=== PATIENT | female | born 1970 | race Caucasian/White ===

== ENCOUNTER 2017-01-10 00:25 | Inpatient (IN) | payer OTHER ==
[2017-01-10] MEDS ORDERED: ONDANSETRON 4 MG/2 ML VIAL IVP STA (00:35)
[2017-01-10] MEDS ORDERED: MORPHINE SULFATE 4 MG/ML SYRINGE IV STA (00:39)
[2017-01-10] MEDS ORDERED: SODIUM CHLORIDE 0.9% 1,000 ML IV STA ×3 (00:39→02:30)
[2017-01-10] MEDS ORDERED: IPRATROPIUM-ALBUTEROL 3 ML NEB INHALATION STA (00:44)
--- NOTE | 2017-01-10 00:44 | ED ---
General Adult HPI - General Chief complaint: Chest Pain Stated complaint: chest pain Time Seen by Provider: 01/10/17 00:26 Source: patient, EMS, RN notes reviewed, old records reviewed Mode of arrival: EMS Limitations: no limitations - History of Present Illness Initial comments: This is a 46-year-old female here for evaluation of chest pain. Left-sided chest pain shortness of breath. Patient suffers from COPD high blood pressure. Patient states she hasn't been feeling well, having increased weight loss, having belly pain secondary to hiatal hernia and decreased appetite. Patient does take pain medications at home she settles are not working at this time. Patient does admit to nausea vomiting.No fever no travel history no cough or congestion. - Related Data Home Medications Medication Instructions Recorded Confirmed Ibuprofen [Motrin] 800 mg PO TID 06/08/15 11/17/16 Loratadine [Claritin] 10 mg PO DAILY 06/08/15 11/17/16 Ranitidine HCl 150 mg PO BID 06/08/15 11/17/16 ALPRAZolam 1 mg PO BID 12/18/15 12/18/15 Albuterol Inhaler [Ventolin Hfa 2 puff INHALATION RT-TID PRN 12/18/15 11/17/16 Inhaler] Tiotropium 18 Mcg/Puff [Spiriva] 1 puff INHALATION RT-DAILY 12/18/15 11/17/16 carBAMazepine [TEGretol XR] 100 mg PO DAILY 12/18/15 11/17/16 HYDROcodone/APAP 5-325MG [[place] 2 tab PO Q6HR PRN 11/17/16 11/17/16 5-325] Previous Rx's Medication Instructions Recorded ALPRAZolam [Xanax] 0.5 mg PO BID #20 tab 01/03/16 Allergies Allergy/AdvReac Type Severity Reaction Status Date / Time codeine Allergy Unknown Verified 12/18/15 19:45 Review of Systems ROS Statement: Those systems with pertinent positive or pertinent negative responses have been documented in the HPI. ROS Other: All systems not noted in ROS Statement are negative. Past Medical History Past Medical History: Asthma, COPD, Hypertension, Osteoarthritis (OA), Seizure Disorder Additional Past Medical History / Comment(s): back pain History of Any Multi-Drug Resistant Organisms: None Reported Past Surgical History: Section, Cholecystectomy Past Psychological History: No Psychological Hx Reported Smoking Status: Current every day smoker Past Alcohol Use History: Heavy Past Drug Use History: Marijuana - Past Family History Mother Family Medical History: Cancer Father Family Medical History: Cancer General Exam Limitations: no limitations General appearance: alert, anxious, in distress, cachectic Head exam: Present: atraumatic, normocephalic, normal inspection Eye exam: Present: normal appearance, PERRL, EOMI. Absent: scleral icterus, conjunctival injection, periorbital swelling ENT exam: Present: normal exam, mucous membranes moist Neck exam: Present: normal inspection. Absent: tenderness, meningismus, lymphadenopathy Respiratory exam: Present: wheezes, chest wall tenderness, accessory muscle use , decreased breath sounds, prolonged expiratory. Absent: respiratory distress, rales, rhonchi, stridor Cardiovascular Exam: Present: normal rhythm, tachycardia, normal heart sounds. Absent: systolic murmur, diastolic murmur, rubs, gallop, clicks GI/Abdominal exam: Present: soft, tenderness, guarding, normal bowel sounds. Absent: distended, rebound, rigid Extremities exam: Present: normal inspection, full ROM, normal capillary refill. Absent: tenderness, pedal edema, joint swelling, calf tenderness Back exam: Present: normal inspection Neurological exam: Present: alert, oriented X3, CN II-XII intact Psychiatric exam: Present: normal affect, normal mood Skin exam: Present: warm, dry, intact, normal color. Absent: rash Course Vital Signs 01/10/17 01/10/17 01/10/17 00:27 00:45 00:50 Temperature 97.2 F L Pulse Rate 101 H 86 80 Respiratory 22 20 Rate Blood Pressure 108/82 120/67 O2 Sat by Pulse 89 L Oximetry 01/10/17 01/10/17 01/10/17 01:10 01:49 02:53 Temperature Pulse Rate 88 98 115 H Respiratory 18 20 Rate Blood Pressure 119/80 114/77 O2 Sat by Pulse 92 L 94 L Oximetry - Reevaluation(s) Reevaluation #1: 01/10/17 03:46 Patient remaining hemodynamically stable, pain is difficult to control with at this time is control Reevaluation #2: 01/10/17 03:47 Speaking with surgery regarding patient's gastric perforation, will evaluate EKG Findings - EKG Comments: EKG Findings:: EKG shows normal sinus rhythm rate of 93, [place] 134, QRS 72, QTC 482 Medical Decision Making - Medical Decision Making 46 female ER for reevaluation. Regarding abdominal pain.. Patient has a dull pain and epigastric abdominal pain, CT positive for gastric perforation, patient will be admitted for IV antibiotics and surgical evaluation and treatment, nothing by mouth pain control and nausea control - Lab Data Result diagrams: 01/10/17 00:40 01/10/17 00:40 Lab Results 01/10/17 01/10/17 01/10/17 Range/Units 00:40 00:40 00:40 WBC 13.5 H (3.8-10.6) k/uL RBC 3.89 (3.80-5.40) m/uL Hgb 12.9 (11.4-16.0) gm/dL Hct 41.1 (34.0-46.0) % MCV 105.8 H (80.0-100.0) fL MCH 33.2 (25.0-35.0) pg MCHC 31.4 (31.0-37.0) g/dL RDW 17.9 H (11.5-15.5) % Plt Count 196 (150-450) k/uL Neutrophils % 67 % Lymphocytes % 25 % Monocytes % 4 % Eosinophils % 1 % Basophils % 0 % Neutrophils # 9.1 H (1.3-7.7) k/uL Lymphocytes # 3.4 (1.0-4.8) k/uL Monocytes # 0.5 (0-1.0) k/uL Eosinophils # 0.2 (0-0.7) k/uL Basophils # 0.1 (0-0.2) k/uL Hypochromasia Moderate Anisocytosis Slight Macrocytosis Marked PT (9.0-12.0) sec INR (<1.1) APTT (22.0-30.0) sec D-Dimer (<0.60) mg/L FEU Sodium 141 (137-145) mmol/L Potassium 3.4 L (3.5-5.1) mmol/L Chloride 103 (98-107) mmol/L Carbon Dioxide 23 (22-30) mmol/L Anion Gap 15 mmol/L BUN 3 L (7-17) mg/dL Creatinine 0.40 L (0.52-1.04) mg/dL Est GFR (MDRD) Af Amer >60 (>60 ml/min/1.73 sqM) Est GFR (MDRD) Non-Af >60 (>60 ml/min/1.73 sqM) Glucose 111 H (74-99) mg/dL Calcium 8.7 (8.4-10.2) mg/dL Magnesium 1.9 (1.6-2.3) mg/dL Total Bilirubin 1.3 (0.2-1.3) mg/dL AST 159 H (14-36) U/L ALT 40 (9-52) U/L Alkaline Phosphatase 312 H (38-126) U/L Total Creatine Kinase 34 (30-135) U/L CK-MB (CK-2) 0.6 (0.0-2.4) ng/mL CK-MB (CK-2) Rel Index 1.8 Troponin I <0.012 (0.000-0.034) ng/mL NT-Pro-B Natriuret Pep pg/mL Total Protein 7.7 (6.3-8.2) g/dL Albumin 3.9 (3.5-5.0) g/dL Lipase 51 (23-300) U/L 01/10/17 01/10/17 Range/Units 00:40 00:40 WBC (3.8-10.6) k/uL RBC (3.80-5.40) m/uL Hgb (11.4-16.0) gm/dL Hct (34.0-46.0) % MCV (80.0-100.0) fL MCH (25.0-35.0) pg MCHC (31.0-37.0) g/dL RDW (11.5-15.5) % Plt Count (150-450) k/uL Neutrophils % % Lymphocytes % % Monocytes % % Eosinophils % % Basophils % % Neutrophils # (1.3-7.7) k/uL Lymphocytes # (1.0-4.8) k/uL Monocytes # (0-1.0) k/uL Eosinophils # (0-0.7) k/uL Basophils # (0-0.2) k/uL Hypochromasia Anisocytosis Macrocytosis PT 10.8 (9.0-12.0) sec INR 1.1 (<1.1) APTT 25.2 (22.0-30.0) sec D-Dimer 1.26 H (<0.60) mg/L FEU Sodium (137-145) mmol/L Potassium (3.5-5.1) mmol/L Chloride (98-107) mmol/L Carbon Dioxide (22-30) mmol/L Anion Gap mmol/L BUN (7-17) mg/dL Creatinine (0.52-1.04) mg/dL Est GFR (MDRD) Af Amer (>60 ml/min/1.73 sqM) Est GFR (MDRD) Non-Af (>60 ml/min/1.73 sqM) Glucose (74-99) mg/dL Calcium (8.4-10.2) mg/dL Magnesium (1.6-2.3) mg/dL Total Bilirubin (0.2-1.3) mg/dL AST (14-36) U/L ALT (9-52) U/L Alkaline Phosphatase (38-126) U/L Total Creatine Kinase (30-135) U/L CK-MB (CK-2) (0.0-2.4) ng/mL CK-MB (CK-2) Rel Index Troponin I (0.000-0.034) ng/mL NT-Pro-B Natriuret Pep 53 pg/mL Total Protein (6.3-8.2) g/dL Albumin (3.5-5.0) g/dL Lipase (23-300) U/L - Radiology Data Radiology results: report reviewed (CT chest abdomen pelvis shows gastric pull perforation, no PE, chest x-ray negative for acute disease), image reviewed Critical Care Time Critical Care Time: Yes Total Critical Care Time: 31 Disposition Clinical Impression: Chronic back pain, Peritonitis, Gastric ulcer with perforation Disposition: ADMITTED IP TO THIS [facility] Condition: Serious Referrals: None,Stated [Primary Care Provider] - 1-2 days
[2017-01-10 00:54] LABS: Anisocytosis Slight; Basophils # (A) 0.1 k/uL (0-0.2); Basophils % (A) 0 %; CH 31.9; CHCM 30.3; Eosinophils # (A) 0.2 k/uL (0-0.7); Eosinophils % (A) 1 %; HCT 41.1 % (34.0-46.0); HDW 2.44; HGB 12.9 gm/dL (11.4-16.0); Hypochromasia Moderate; Luc # (Auto) 0.29; Luc % (Auto) 2; Lymphocytes # (A) 3.4 k/uL (1.0-4.8); Lymphocytes % (A) 25 %; MCH 33.2 pg (25.0-35.0); MCHC 31.4 g/dL (31.0-37.0); MCV 105.8 fL (80.0-100.0); Macrocytosis Marked; Mean Platelet Volume 7.9; Monocytes # (A) 0.5 k/uL (0-1.0); Monocytes % (A) 4 %; Neutrophils # (A) 9.1 k/uL (1.3-7.7); Neutrophils % (A) 67 %; RBC 3.89 m/uL (3.80-5.40); RDW 17.9 % (11.5-15.5); WBC 13.5 k/uL (3.8-10.6); WBC (Perox) 13.42
[2017-01-10 01:14] LABS: ALT 40 U/L (9-52); AST 159 U/L (14-36); Alkaline Phosphatase 312 U/L (38-126); Anion Gap 15 mmol/L; Blood Urea Nitrogen 3 mg/dL (7-17); Calcium 8.7 mg/dL (8.4-10.2); Carbon Dioxide 23 mmol/L (22-30); Chloride 103 mmol/L (98-107); Glucose 111 mg/dL (74-99); Magnesium 1.9 mg/dL (1.6-2.3); Non-African American GFR(MDRD) >60 (>60 ml/min/1.73 sqM); Potassium 3.4 mmol/L (3.5-5.1); Sodium 141 mmol/L (137-145); Total Bilirubin 1.3 mg/dL (0.2-1.3); Total Protein 7.7 g/dL (6.3-8.2)
[2017-01-10 01:18] LABS: INR 1.1 (<1.1); Partial Thromboplastin Time 25.2 sec (22.0-30.0); Prothrombin Time 10.8 sec (9.0-12.0)
[2017-01-10 01:27] LABS: Creatine Kinase 34 U/L (30-135)
[2017-01-10] MEDS ORDERED: RX INFO: IV CONTRAST WAS GIVEN 1 EACH MISC MISCELLANE PRN ×2 (01:33→02:30)
--- NOTE | 2017-01-10 01:34 | XR ---
EXAM: XR Chest, 2 Views. CLINICAL HISTORY: Reason: Chest Pain TECHNIQUE: Frontal and lateral views of the chest. COMPARISON: 01/03/16 radiographs. FINDINGS: Lungs: The lungs are now clear, and the pulmonary vascular markings are normal in appearance. Pleural space: The pleural spaces are now clear. No pneumothorax. Heart: Unremarkable. No cardiomegaly. Mediastinum: Unremarkable. Bones/joints: Bones stable including thoracolumbar dextroscoliosis and accentuated kyphosis, with multilevel thoracic and upper lumbar compression deformities that are unchanged as is degenerative change in both shoulders accompanied by smooth contour deformity of the distal right clavicle. Tubes, lines and devices: Interval removal of previous left sided central venous catheter. IMPRESSION: No acute process seen within the chest.
[2017-01-10 01:40] LABS: Creatine Kinase MB 0.6 ng/mL (0.0-2.4); Troponin I <0.012 ng/mL (0.000-0.034)
[2017-01-10] MEDS ORDERED: MORPHINE SULFATE 4 MG/ML SYRINGE IVP STA (02:10)
[2017-01-10] MEDS ORDERED: SODIUM CHLORIDE 0.9% 500 ML IV STA (02:30)
[2017-01-10] MEDS ORDERED: AMPICILLIN-SULBACTAM 3 GM in SODIUM CHLORIDE 0.9% 100 ML IVPB STA (02:30)
--- NOTE | 2017-01-10 02:33 | CT ---
EXAM: CT Angiography Chest With Intravenous Contrast. CLINICAL HISTORY: Reason: Pain TECHNIQUE: Axial computed tomographic angiography images of the chest with intravenous contrast using pulmonary embolism protocol. CTDI is 45.49 mGy and DLP is 392 mGy-cm This CT exam was performed using one or more of the following dose reduction techniques: automated exposure control, adjustment of the mA and/or kV according to patient size, and/or use of iterative reconstruction technique. MIP reconstructed images were created and reviewed. COMPARISON: Current chest radiograph. FINDINGS: Artifacts: Mild motion related artifact. Pulmonary arteries: Unremarkable. No pulmonary embolism. Aorta: No acute findings. No thoracic aortic aneurysm. Lungs: There is right middle lobe volume loss with bronchiectasis, containing small amount of endobronchial material within. Mild left lower lobe bronchiectasis also contains some endobronchial density within. Additional bronchiectasis with linear atelectasis or scarring anteriorly in the right upper lobe were there are few small nodules measuring up to 4-5 mm on image 40. Elsewhere, there is a thin-walled cyst or bulla in the lingula, and minimal atelectasis in the left lower lobe posterior to the heart. Pleural space: Unremarkable. No significant effusion. No pneumothorax. Heart: Unremarkable. No cardiomegaly. No significant pericardial effusion. No evidence of RV dysfunction. Bones/joints: Accentuated thoracolumbar kyphosis with moderate to severe chronic appearing T11 compression deformity centered to the left of midline, accompanied by slight left lateral translation of T10 on T11. Additional chronic mild to moderate L1 and mild T4 and T5 compression deformities. Lymph nodes: Unremarkable. No enlarged lymph nodes. Upper abdomen: Small amount of perihepatic and perhaps perisplenic ascites. Scattered foci of free air present. There may be a small hiatal hernia with adjacent gastric wall thickening, partially included. IMPRESSION: 1. No evidence of pulmonary embolism. 2. Multifocal bronchiectasis, most notably within the right middle lobe where there is volume loss and left lower lobe, and containing small amounts of endobronchial density/debris within perhaps on the basis of mucous plugging or aspiration. Additional right upper lobe bronchiectasis and scarring with small nodules measuring up to 5 mm, and which are indeterminate. In low-risk patients (minimal or absent history of smoking or other known risk factors), recommend CT at 12 months. If stable, no further follow-up. For high-risk patients (history of smoking or other known risk factors), recommend initial CT at 6-12 months. If stable, repeat CT at 18-24 months. 3. Free air present in the upper abdomen, concerning for hollow viscus perforation assuming no recent abdominal surgery, which can be further assessed by CT of the abdomen and pelvis. This was called to the covering ER clinician Dr. Marx at time of dictation 0230 hrs. Eastern standard time. 4. Additional findings as above. [employer] 01/10/17 02:29 Call Doctor Regarding Bowel Perforation with Free Air, called DR MARX @ [phone] 01/10/17 02:51 Call From [facility]
--- NOTE | 2017-01-10 03:35 | CT ---
EXAM: CT Abdomen and Pelvis Without Intravenous Contrast. CLINICAL HISTORY: Reason: Pain TECHNIQUE: Axial computed tomography images of the abdomen and pelvis without intravenous contrast. CTDI is 6.20 MGy and DLP is 276.00 mGy-cm This CT exam was performed using one or more of the following dose reduction techniques: automated exposure control, adjustment of the mA and/or kV according to patient size, and/or use of iterative reconstruction technique. COMPARISON: Earlier CTA of the same morning. FINDINGS: Lower thorax: Lung bases are unchanged from earlier is chest CTA. ABDOMEN: Liver: Hepatomegaly with diffuse hepatic steatosis. Gallbladder and bile ducts: Prior cholecystectomy with mild dilatation of the common duct measuring 10 mm. Pancreas: Unremarkable. No ductal dilation. Spleen: Unremarkable. No splenomegaly. Adrenals: Unremarkable. No mass. Kidneys and ureters: Retained contrast within the kidneys and ureters without evidence of hydronephrosis. There is a partially exophytic 2.0 cm probable cyst along the lateral interpolar left kidney, and there may be a second smaller subcentimeter cyst along the medial right upper pole. Stomach and bowel: There is again free air present within the upper abdomen including underlying the left diaphragm and immediately anterior to the proximal stomach. The stomach itself is incompletely distended, allowing for which there appears to be wall thickening. Distal colonic diverticulosis within the pelvis without evidence of diverticulitis, nor intestinal obstruction. Appendix: No findings to suggest acute appendicitis. PELVIS: Bladder: Retained radiodense contrast within the urinary bladder, limiting its assessment. Reproductive: Uterus and adnexa are grossly normal. ABDOMEN and PELVIS: Intraperitoneal space: There are small amounts of free fluid within the abdomen and pelvis, and there is generalized peritoneal fat stranding most notably in the upper abdomen although also present in the paracolic gutters. No loculated drainable collection is seen. Bones/joints: Bones are stable including chronic appearing compression deformities at T11 greater than L1, associated left lateral translation of T10 on T11 and accentuated thoracolumbar kyphosis. Vasculature: No abdominal aortic aneurysm. Lymph nodes: No bulky adenopathy. IMPRESSION: 1. Free intraperitoneal air consistent with hollow viscus perforation. This is centered in the upper abdomen including immediately anterior to the stomach, which is the most likely source, perhaps on the basis of perforated gastric ulcer. 2. Small amounts of free fluid and diffuse peritoneal inflammatory changes within the abdomen and pelvis. No loculated drainable abscess. 3. Additional findings as above including hepatomegaly and hepatic steatosis, and mild prominence of the common duct status post cholecystectomy. [employer] 01/10/17 03:41 Call Doctor Regarding Bowel Perforation with Free Air, called Dr. Marx on 01/10 03:41 (-04:00)
[2017-01-10] MEDS ORDERED: PANTOPRAZOLE 40 MG/10 ML VIAL IVP STA (03:41)
[2017-01-10] MEDS ORDERED: MORPHINE SULFATE 4 MG/ML SYRINGE IV PRN (03:42)
[2017-01-10] MEDS ORDERED: NALOXONE 0.4 MG/ML 1 ML VIAL IV PRN (03:42)
--- NOTE | 2017-01-10 04:40 | P.GSHP ---
History of Present Illness H&P Date: 01/10/17 Chief Complaint: Abdominal and chest pain The patient presented with a several-day history of abdominal and chest pain. Her workup today is consistent with a perforated ulcer. The patient is been on steroids recently for an exacerbation of MS. I have done and EGD on her in the past. - Constitutional Comment: Chronically ill-appearing Constitutional: Reports as per HPI Past Medical History Past Medical History: Asthma, COPD, Hypertension, Osteoarthritis (OA), Seizure Disorder Additional Past Medical History / Comment(s): back pain History of Any Multi-Drug Resistant Organisms: None Reported Past Surgical History: Section, Cholecystectomy Additional Past Surgical History / Comment(s): Excision of infected cyst from the right breast Past Psychological History: No Psychological Hx Reported Smoking Status: Current every day smoker Past Alcohol Use History: Heavy Past Drug Use History: Marijuana - Past Family History Mother Family Medical History: Cancer Father Family Medical History: Cancer Medications and Allergies Home Medications and Allergies Comment(s): Reports recent steroid use Home Medications Medication Instructions Recorded Confirmed Type Ibuprofen [Motrin] 800 mg PO TID 06/08/15 11/17/16 History Loratadine [Claritin] 10 mg PO DAILY 06/08/15 11/17/16 History Ranitidine HCl 150 mg PO BID 06/08/15 11/17/16 History ALPRAZolam 1 mg PO BID 12/18/15 12/18/15 History Albuterol Inhaler [Ventolin Hfa 2 puff INHALATION RT-TID PRN 12/18/15 11/17/16 History Inhaler] Tiotropium 18 Mcg/Puff [Spiriva] 1 puff INHALATION RT-DAILY 12/18/15 11/17/16 History carBAMazepine [TEGretol XR] 100 mg PO DAILY 12/18/15 11/17/16 History HYDROcodone/APAP 5-325MG [[place] 2 tab PO Q6HR PRN 11/17/16 11/17/16 History 5-325] Allergies Allergy/AdvReac Type Severity Reaction Status Date / Time codeine Allergy Unknown Verified 12/18/15 19:45 Surgical - Exam Osteopathic Statement: *. No significant issues noted on an osteopathic structural exam other than those noted in the History and Physical/Consult. Vital Signs Temp Pulse Resp BP Pulse Ox 97.2 F L 101 H 22 108/82 89 L 01/10/17 00:27 01/10/17 00:27 01/10/17 00:27 01/10/17 00:27 01/10/17 00:27 - General moderate distress - Eyes normal ocular movement - ENT no hearing loss - Neck trachea midline - Respiratory Mildly decreased breath sounds bilaterally bilateral: wheezing - Cardiovascular Rhythm: regular - Abdomen Abdomen: tender, bowel sounds (Decreased) Results - Labs 01/10/17 00:40 01/10/17 00:40 - Imaging CT scan - abdomen: report reviewed Assessment and Plan (1) Perforated viscus Status: Acute (2) COPD (chronic obstructive pulmonary disease) Status: Acute (3) Nicotine dependence Status: Acute Plan: I discussed the findings with Keiko and her significant other. She needs a laparotomy with probable oversew of perforated ulcer. Washout the peritoneal contamination. There is less likely another source of perforation, however that will be repaired if found. Procedure, risks and complications were discussed. Explained she is at higher risk due to her COPD the developing pulmonary complications. DVT and ulcer prophylaxis. She'll need to be and antibiotics. Condition is guarded
[2017-01-10] MEDS ORDERED: LIDOCAINE 1% INJ 10MG/ML (20 ML MDV) ONE (05:18)
[2017-01-10] MEDS ORDERED: VECURONIUM 10 MG VIAL IV ONE (05:18)
[2017-01-10] MEDS ORDERED: GLYCOPYRROLATE 0.2 MG/ML 2 ML VIAL ONE (05:18)
[2017-01-10] MEDS ORDERED: NEOSTIGMINE 1 MG/ML 10 ML VIAL ONE (05:18)
[2017-01-10] MEDS ORDERED: ETOMIDATE 2 MG/ML 10 ML VIAL ONE (05:18)
[2017-01-10] MEDS ORDERED: ONDANSETRON 4 MG/2 ML VIAL ONE (05:18)
[2017-01-10] MEDS ORDERED: SUCCINYLCHOLINE CHLORIDE 100 MG/5 ML SYR IV ONE ×2 (05:18→18:42)
[2017-01-10] MEDS ORDERED: IV FLUID CONTINUATION 1,000 ML IV ONE (05:18)
[2017-01-10] MEDS ORDERED: fentaNYL (PF) 50 MCG/ML 2 ML AMP ONE (05:18)
[2017-01-10] MEDS ORDERED: BUPIVACAIN-EPI 0.25%-1:200,000 30 ML VIAL SQ ONE ×2 (05:41)
[2017-01-10] MEDS ORDERED: LACTATED RINGERS 1,000 ML IV ONE ×2 (06:07→08:00)
[2017-01-10] MEDS ORDERED: ONDANSETRON 4 MG/2 ML VIAL IVP PRN (06:34)
--- NOTE | 2017-01-10 06:34 | P.OP ---
Date of Procedure: 01/10/17 Preoperative Diagnosis: Perforated viscus Postoperative Diagnosis: Perforated gastric ulcer, cirrhosis of the liver Procedure(s) Performed: Exploratory laparotomy, oversew of gastric ulcer with Abram's patch, liver biopsy Anesthesia: ZAKIA Surgeon: Mari Kaplan Estimated Blood Loss (ml): 150 Pathology: other (Liver) Condition: stable Disposition: PACU Indications for Procedure: The patient presented with abdominal pain and workup showed perforated viscus likely from a perforated gastric ulcer Operative Findings: She had a perforation of the anterior wall of the stomach. The liver was extremely hard and she had some hepatomegaly. A liver biopsy was obtained to confirm this diagnosis of cirrhosis. There was free fluid some of which was ascites and some was gastric contents. Description of Procedure: The patient's taken the operative suite where she is prepped and draped in the usual sterile manner. The abdomen was entered through a upper midline incision. Small bleeding points are controlled with electrocautery. Upon entry into the abdomen there was noted to be some free air. There is noted to be the perforated ulcer about 1 cm on the anterior wall of the stomach. This was sutured with 0 Vicryl sutures. The abdomen was then copiously irrigated and aspirated. Her omentum was adherent inferiorly. There were some larger vessels present. These were clamped cut and tied with 0 Vicryl suture. Once the omentum was freed up it was sutured to the anterior wall of the stomach as a Abram's patch. 2 drains were placed. The drain on the left side went along the paracolic gutter and under the liver. The one on the right side was placed between the liver and the Abram's patch. The fascia was then closed with 0 PDS. The skin was loosely approximated with sutures. Iesha of Telfa were placed in the sonny. A dressing was applied. She tolerated the procedure without difficulty and was taken recovery room in satisfactory condition. According to or personnel all counts were correct. The patient's prognosis is guarded due to the multiple medical comorbidities including her COPD and cirrhosis.
[2017-01-10] MEDS ORDERED: HYDROmorphone 1 MG/ML 1 ML SYRINGE IVP PRN (06:38)
[2017-01-10] MEDS ORDERED: LORazepam 2 MG/ML SYRINGE IV PRN ×4 (06:39→10:42)
[2017-01-10] MEDS: HYDROmorphone 1 MG/ML 1 ML SYRINGE IVP ONE ×2 (07:02→07:28)
[2017-01-10 08:13] LABS: Glucose,Whole Blood 117 mg/dL (75-99)
[2017-01-10] MEDS: 1: MVI, ADULT NO.4 WITH VIT K 10 ML, THIAMINE 100 MG, FOLIC ACID 1 MG in SODIUM CHLORIDE IV SCH ×16 (08:32→20:21)
[2017-01-10] MEDS ORDERED: SODIUM CHLORIDE 0.9% 1,000 ML BAG ONE (08:32)
[2017-01-10] MEDS: IPRATROPIUM-ALBUTEROL 3 ML NEB INHALATION SCH ×4 (08:40→19:11)
[2017-01-10] MEDS: AMPICILLIN-SULBACTAM 3 GM in SODIUM CHLORIDE 0.9% 100 ML IVPB SCH ×3 (10:04→23:15)
[2017-01-10] MEDS ORDERED: SODIUM CHLORIDE 0.9% 500 ML IV ONE ×3 (11:23→19:36)
[2017-01-10] MEDS: HYDROmorphone 1 MG/ML 1 ML SYRINGE IVP PRN ×3 (11:50→18:57)
[2017-01-10] MEDS: POTASSIUM CHLORIDE 20 MEQ, LIDOCAINE 2% INJ 20 MG in SODIUM CHLORIDE 0.9% 100 ML IVPB SCH ×2 (11:58→14:05)
[2017-01-10 14:04] VITALS: BMI 19.8
--- NOTE | 2017-01-10 14:39 | CONS ---
DATE OF CONSULTATION: DATE OF SERVICE: 01/10/2017 REASON FOR CONSULTATION: ICU care, sepsis and abnormal x-ray and CAT scan. HISTORY OF PRESENTING ILLNESS: Mr. Keiko Delgado is a 46-year-old with extensive history of smoking and nicotine use. She smokes about 2 packs per day for about 35 to 40 years. Also has a history of extensive alcohol consumption with history of alcoholic cirrhosis of the liver. The patient has been having intermittent abdominal pain for more than week to 2 weeks. She attributes this to her chronic problem of GERD due to persistent problems, came into the emergency department where she was seen, evaluated, and examined and found to have perforated hollow viscus in the stomach and was taken to the OR for an ex lap and repair of the perforation. Patient was subsequently evaluated in the ICU while she was extubated on 4 L oxygen. She is n.p.o. except oral swabs. She is somewhat anxious though. Her data, patient overall a poor historian, most of the data has been on obtained from the chart. Review of the data revealed that the EKG performed earlier this morning reviewed slightly prolonged QT interval but otherwise fairly unremarkable with normal sinus rhythm. The chest x-ray performed revealed no acute process in the chest; but, however, some prominent interstitium, especially on the right side was seen, degenerative joint changes were noted as well. The CT scan of the chest performed earlier this morning was negative for PE; multifocal bronchiectasis, mostly right middle lobe along with volume loss and left lower lobe is seen with some endobronchial plugs or density. Some bronchiectasis in the right upper lobe along with small nodules were seen as well in the right upper lobe. Free air in the upper abdomen is seen consistent with hollow perforated viscus. This was followed by CT scan of the abdomen and pelvis which confirms the presence of free air, hepatomegaly hepatic steatosis, also evidence of prior cholecystectomy. Some small amount of free peritoneal fluid has been noted. Past medical history is significant for chronic persistent asthma, COPD, hypertension, hypertensive cardiovascular disease, seizure disorder, chronic back pain. Past surgical history is significant for significant for right breast infected cyst resection, status post cholecystectomy, history of . Allergies include CODEINE. Medications at home include Motrin as needed, Claritin, ranitidine, Xanax 1 mg p.o. 2 times a day, Ventolin HFA 2 puffs 4 times a day, Spiriva once daily, also on Tegretol 100 mg daily, hydrocodone APAP as needed. FAMILY HISTORY AND SOCIAL HISTORY: As dictated significant for smoking, ethanol abuse. Both parents has history of neoplastic process. The patient is not aware of problem issues associated with that. On examination, her most recent vitals postoperatively reviewed include blood pressure is 100/73, respiratory rate 16 to 18, heart rate is 120, temperature is 98, saturation 90% on 6 L oxygen. HEENT: Atraumatic, normocephalic. Pharynx is clear. Oral mucosa is slightly on the dry side. NECK: Supple. Neck veins are prominent, but no bruits present. LUNGS: Bilateral coarse breath sounds with fine expiratory rhonchi. HEART: Regular rate and rhythm. S1 and S2 audible. ABDOMEN: Soft. No rebound or rigidity. EXTREMITIES: +1 peripheral pulses. NEUROLOGICAL EXAMINATION: Otherwise, awake and alert. No focal neurological deficit. ABDOMEN: Hypoactive bowel sounds. EXTREMITIES: Good. No edema is present. The x-ray finding as dictated above. LABORATORY DATA: Reviewed, which include white cell count of 13,500, hemoglobin and hematocrit 12 and 41, platelet count of 196,000. The rest of CBC is okay with some anisocytosis and macrocytosis. PT, INR normal. D-dimer is 1.26. BUN and creatinine 3 and creatinine 0.4. Lactic acid is 3.0. AST and ALT are 159 and 40. Alkaline phosphatase is 312. Troponin is normal. The lipase is normal. IMPRESSION: 1. Severe sepsis associated with intra-abdominal hollow viscus gastric ulcer perforation, status post exploratory laparotomy and repair of the posterior wall of the stomach and liver biopsy. 2. Cirrhosis of the liver with AST and ALT findings consistent with alcoholic hepatitis. 3. Bronchiectasis with possible aspiration pneumonia. The patient is being treated with breathing treatments and IV Unasyn and Flagyl for now, which will cover the abdominal process as well. 4. Intravascular volume depletion and dehydration related to severe sepsis. Patient is gently resuscitated with fluids. 5. History of chronic obstructive pulmonary disease. 6. Seizure disorder. Will monitor and observe as patient is n.p.o. Tegretol is not available IV, which is being substituted as per recommendation of pharmacy to compatible agent. The patient will be kept on DVT and peptic ulcer disease prophylaxis as well. We will follow clinical course closely. Further recommendations pending. Plan of care as per clinical response of the patient.
[2017-01-10] MEDS: metroNIDAZOLE-NS PMX 500 MG in SALINE 1 100ML.BAG IVPB SCH ×2 (16:38→23:15)
[2017-01-10] MEDS ORDERED: PHENYTOIN SODIUM INJ 1,000 MG in SODIUM CHLORIDE 0.9% 100 ML IVPB STA (16:42)
[2017-01-10 17:15] LABS: ABG HCO3 19 mmol/L (21-25); ABG PCO2 42 mmHg (35-45); ABG PH 7.28 (7.35-7.45); ABG PO2 74 mmHg (83-108)
[2017-01-10 17:16] LABS: ABG Base Excess -6.3 mmol/L; ABG Oxygen Saturation 92.8 % (94-97); ABG TCO2 21 mmol/L (19-24)
[2017-01-10] MEDS ORDERED: PROPOFOL 50 ML IV ONE (18:35)
[2017-01-10] MEDS ORDERED: PROPOFOL 10 MG/ML 20 ML VIAL IV ONE (18:42)
[2017-01-10] MEDS ORDERED: cloNIDine HCL 0.1 MG TAB PO PRN (19:09)
[2017-01-10] MEDS ORDERED: LORazepam 2 MG/ML SYRINGE IV STA (19:09)
[2017-01-10] MEDS: BUDESONIDE 0.25 MG/2 ML NEBU INHALATION SCH (19:11)
--- NOTE | 2017-01-10 19:14 | XR ---
EXAMINATION TYPE: XR chest 1V portable DATE OF EXAM: 01/10/2017 7:03 PM Comparison: 01/10/2017, earlier today Clinical History: 46-year-old female ET tube placement Findings: Excessive kyphotic positioning limiting evaluation. There is some hazy density at the medial right ba se with a band of opacity. ET tube tip is at the level of the medial clavicular heads. NG tube course s below the diaphragm. Visualized upper to mid lungs appear clear. Surgical drain on both sides of th e abdomen with and sonny. Impression: 1. ET tube tip at the level of medial clavicular heads. 2. New opacity at the right base likely represents postoperative atelectasis. This can be reassessed at follow-up.
[2017-01-10 19:27] LABS: ABG PCO2 47 mmHg (35-45); ABG PH 7.22 (7.35-7.45)
[2017-01-10 19:28] LABS: ABG Base Excess -7.9 mmol/L; ABG HCO3 19 mmol/L (21-25); ABG PO2 142 mmHg (83-108); ABG TCO2 20 mmol/L (19-24)
[2017-01-10] MEDS ORDERED: cloNIDine 0.2 MG/24HR PATCH 1 PATCH PATCH TRANSDERM SCH (20:00)
[2017-01-10] MEDS: PROPOFOL 500 MG in EMPTY BAG 1 BAG IV SCH ×2 (21:00→23:47)
[2017-01-10] MEDS ORDERED: HEPARIN SODIUM,PORCINE 5,000 UNIT/ML 1 ML VIAL SQ SCH (21:00)
[2017-01-10] MEDS ORDERED: SODIUM CHLORIDE 0.9% 1,000 ML IV ONE (21:18)
--- NOTE | 2017-01-10 22:10 | CONS ---
DATE OF CONSULTATION: 01/10/2017 REASON FOR CONSULTATION: Advice regarding COPD and hypertension, multiple other medical issues requested by Dr. Kaplan. HISTORY OF PRESENT ILLNESS: This 46-year-old woman with a past medical history of asthma, COPD, DJD, history of seizure disorder, history of back pain, not being followed apparently by any primary physician in outpatient setting was admitted with abdominal pain. The patient was found to have peptic ulcer perforation. The patient underwent exploratory laparotomy and oversew of gastric ulcer with Abram patch and liver biopsy. Patient admitted for further evaluation and treatment. The patient also had abdominal and pelvis CAT scan which showed free intraperitoneal air and hepatomegaly and hepatic steatosis. Patient also gave history of EtOH and smoking. Patient smokes up to 2 packs of cigarettes per day. There is no history of any fever, rigors or chills. No history of headache, loss of consciousness or seizures. The chest CT shows multifocal bronchiectasis and no evidence of pulmonary embolism. Small nodules are also noted. Dr. Thakkar from Pulmonary has also been consulted. PAST MEDICAL HISTORY: History of asthma, COPD, hypertension, DJD, history of seizure disorder, back pain. Medications prior to admission include home medications are: 1. Tegretol-XR 200 mg q.h.s. and 100 mg p.o. daily. 2. Ranitidine 150 mg b.i.d. 3. Claritin 10 mg daily. 4. Atrovent HFA 2 puffs q.i.d. p.r.n. 5. Reeves 1 tablet p.o. p.r.n. 6. Ventolin HFA 2 puffs b.i.d. 7. Xanax 0.5 b.i.d. 8. Xanax 1 mg p.o. b.i.d. ALLERGIES ARE CODEINE. FAMILY HISTORY: History of cancer in the family. SOCIAL HISTORY: History of alcohol, THC and history of nicotine dependence. The patient drinks 2 tall beers, apparently. REVIEW OF SYSTEMS: ENT: No diminished hearing. No diminished vision. CARDIOVASCULAR: No angina, palpitations. RESPIRATORY: As mentioned earlier. GI: As mentioned earlier. : No dysuria. NERVOUS: No numbness or weakness. ALLERGY/IMMUNOLOGY: No asthma or hay fever. MUSCULOSKELETAL: As mentioned earlier. HEMATOLOGY/ONCOLOGY: No history of anemia. ENDOCRINE: No history of diabetes. CONSTITUTIONAL: As mentioned earlier. DERMATOLOGY: Negative. RHEUMATOLOGY: Negative. PSYCHIATRY: As mentioned earlier. PHYSICAL EXAM: Alert and oriented x3. Pulse 135, blood pressure 161/70 , respirations 14, temperature normal, pulse ox 93% on 100% HEENT: Conjunctivae normal. Oral mucosa moist. NECK: No jugular venous distention. No carotid bruits. No lymph node enlargement. CARDIOVASCULAR: S1 and S2 muffled. No S3. No S4. RESPIRATORY: Breath sounds diminished at the bases. A few scattered rhonchi. No crackles. ABDOMEN: Soft, status post surgery. NG tube in place. Bowel sounds absent. LEGS: No edema. No swelling. NERVOUS SYSTEM: Higher functions as mentioned. Moves all 4 limbs. Nonfocal. LYMPHATIC: No lymph node palpable in neck, axillae or groin. SKIN: No ulcer, rash or bleeding. LABS: WBC 13.51, MCV 105.8. ABG 7.28. Potassium 3.4, creatinine 0.4. Lactic acid is 2.1. ASSESSMENT: 1. Acute peptic ulcer perforation with sepsis, present on admission, status post exploratory laparotomy and as well as oversew of the gastric ulcer with a Abram patch and liver biopsy. 2. Acute hypoxic respiratory failure, multifactorial. 3. Chronic obstructive pulmonary disease, asthma, acute exacerbation. 4. Acute respiratory acidosis. 5. Increased WBC. 6. Increased MCV. 7. History of EtOH. 8. Hypertension. 9. Possible withdrawals and early delirium tremens. 10. Elevated lactic acid. 11. Increased AST, possible alcoholic hepatitis. 12. Increased alkaline phosphatase. 13. History of hypertension. 14. History of degenerative joint disease. 15. History of seizure disorder. 16. History of back pain, degenerative joint disease. 17. History of cholecystectomy. 18. Depression, not otherwise specified. 19. History of nicotine dependence. 20. History of THC. 21. FULL CODE. ASSESSMENT: In this 46-year-old woman who presented with multiple complex medical issues, will monitor the patient closely. Continue with the current medications, continue with symptomatic treatment, broad-spectrum IV antibiotics. I would also recommend intensive bronchodilator treatment, DVT prophylaxis. Otherwise, I would also recommend repeat labs, CIWA protocol and Ativan. Otherwise, I would also recommend clonidine and p.r.n. blood pressure medications. I will follow the patient closely with you, proton pump inhibitors. Thank you, Dr. Kaplan, for letting us participate in this patient's care. Smoking and EtOH cessation also advised. See orders for further details. Cultures also recommended MTDD
[2017-01-10] MEDS: CHLORHEXIDINE GLUCONATE 15 ML CUP MUCOUS MEM SCH (23:14)
[2017-01-11] MEDS: PHENYTOIN SODIUM INJ 100 MG in SODIUM CHLORIDE 0.9% 100 ML IVPB SCH ×3 (00:32→19:06)
[2017-01-11] MEDS: PANTOPRAZOLE 40 MG/10 ML VIAL IVP SCH ×2 (00:44→09:31)
[2017-01-11] MEDS: HYDROmorphone 1 MG/ML 1 ML SYRINGE IVP PRN ×2 (05:07→08:25)
[2017-01-11] MEDS: PROPOFOL 500 MG in EMPTY BAG 1 BAG IV SCH ×6 (05:31→15:23)
[2017-01-11 05:40] LABS: ABG HCO3 16 mmol/L (21-25); ABG PCO2 32 mmHg (35-45); ABG PH 7.32 (7.35-7.45); ABG PO2 73 mmHg (83-108); ABG TCO2 17 mmol/L (19-24)
[2017-01-11 06:18] LABS: ALT 34 U/L (9-52); AST 73 U/L (14-36); Alkaline Phosphatase 151 U/L (38-126); Blood Urea Nitrogen 3 mg/dL (7-17); Carbon Dioxide 17 mmol/L (22-30); Chloride 117 mmol/L (98-107); Glucose 78 mg/dL (74-99); Non-African American GFR(MDRD) >60 (>60 ml/min/1.73 sqM); Phosphorous 2.5 mg/dL (2.5-4.5); Potassium 3.2 mmol/L (3.5-5.1); Total Bilirubin 1.4 mg/dL (0.2-1.3)
[2017-01-11 06:33] LABS: Anion Gap 9 mmol/L; Sodium 143 mmol/L (137-145)
[2017-01-11] MEDS: 1: MVI, ADULT NO.4 WITH VIT K 10 ML, THIAMINE 100 MG, FOLIC ACID 1 MG in SODIUM CHLORIDE IV SCH ×4 (06:35)
[2017-01-11 06:36] LABS: Calcium 6.2 mg/dL (8.4-10.2)
[2017-01-11] MEDS ORDERED: Potassium Replacement Protocol 1 EACH MISC MISCELLANE PRN (06:44)
[2017-01-11] MEDS ORDERED: Magnesium Replacement Protocol 1 EACH MISC MISCELLANE PRN (06:45)
[2017-01-11] MEDS ORDERED: SODIUM BICARB 8.4% 50 ML SYR (1 MEQ/ML) ONE ×2 (06:46→15:43)
[2017-01-11] MEDS ORDERED: EPINEPHrine 10 ML SYRINGE (0.1 MG/ML) ONE (06:46)
--- NOTE | 2017-01-11 07:19 | XR ---
EXAMINATION TYPE: XR chest 1V portable DATE OF EXAM: 01/11/2017 6:37 AM Comparison: 01/20/2017 Clinical History: 46-year-old female copd Findings: Heart remains normal size. NG tube courses below the diaphragm. ET tube tip at the level of the media l clavicular heads. Upper lungs remain relatively clear as does the remainder of the left lung. Hazy density at the right base suggesting some layering pleural fluid. No significant interval change. Impression: The right basilar opacity now has a hazy appearance suggesting layering small pleural effusion with a djacent atelectasis and/or consolidation.
[2017-01-11 07:38] LABS: Anisocytosis Slight; CH 30.8; CHCM 27.7; HCT 34.3 % (34.0-46.0); HDW 2.43; HGB 10.4 gm/dL (11.4-16.0); Hypochromasia Marked; Immature Gran Flag Marked; MCH 33.8 pg (25.0-35.0); MCHC 30.2 g/dL (31.0-37.0); Macrocytosis Marked; Mean Platelet Volume 8.5; RBC 3.07 m/uL (3.80-5.40); RDW 17.3 % (11.5-15.5); WBC 5.6 k/uL (3.8-10.6); WBC (Perox) 5.84
[2017-01-11 07:41] LABS: MCV 111.9 fL (80.0-100.0)
[2017-01-11] MEDS: MAGNESIUM SULFATE-D5W PMX 1 GM in DEXTROSE/WATER 1 100ML.BAG IVPB SCH ×5 (07:48→16:38)
[2017-01-11] MEDS: POTASSIUM CHLORIDE 10 MEQ, LIDOCAINE 2% INJ 10 MG in SODIUM CHLORIDE 0.9% 100 ML IV SCH ×2 (07:49→10:21)
[2017-01-11] MEDS: BUDESONIDE 0.25 MG/2 ML NEBU INHALATION SCH ×2 (07:55→20:04)
[2017-01-11] MEDS: IPRATROPIUM-ALBUTEROL 3 ML NEB INHALATION SCH ×4 (07:55→20:04)
[2017-01-11] MEDS ORDERED: 1: MVI, ADULT NO.4 WITH VIT K 10 ML, THIAMINE 100 MG, FOLIC ACID 1 MG in SODIUM CHLORIDE IV SCH ×4 (08:00)
[2017-01-11 08:10] LABS: Add Differential Manual Differential
[2017-01-11 08:14] LABS: Band Neutrophils % 7.5 %; Myelocytes % 0.5 %; Nucleated Red Blood Cells 0 /100 WBC (0-0); Polychromasia Present; Tear Drop Cells Present; Total Cells Counted 200
[2017-01-11] MEDS: CALCIUM GLUCONATE 1,000 MG in SODIUM CHLORIDE 0.9% 100 ML IVPB SCH ×2 (08:59→10:17)
[2017-01-11] MEDS ORDERED: SODIUM CHLORIDE 0.9% 1,000 ML IV ONE ×2 (09:01→17:07)
[2017-01-11] MEDS ORDERED: ACETAMINOPHEN IV (For NPO) 1,000 MG in EMPTY BAG 1 BAG IVPB PRN (09:02)
[2017-01-11] MEDS: metroNIDAZOLE-NS PMX 500 MG in SALINE 1 100ML.BAG IVPB SCH ×2 (09:08→19:41)
[2017-01-11] MEDS: CHLORHEXIDINE GLUCONATE 15 ML CUP MUCOUS MEM SCH (09:31)
--- NOTE | 2017-01-11 09:36 | P.PN ---
Subjective Principal diagnosis: Status post oversew of perforated gastric ulcer The patient is seen on rounds. She required reintubation yesterday due to hypoxemia. She's had some borderline urine output which is improving with IV fluid bolus. Objective - Vital Signs Vital signs: Vital Signs Temp 101.3 F H 01/11/17 08:00 Pulse 140 H 01/11/17 08:28 Resp 21 01/11/17 08:00 BP 79/60 01/11/17 08:00 Pulse Ox 94 L 01/11/17 08:00 Intake & Output 01/10/17 01/11/17 01/11/17 18:59 06:59 18:59 Intake Total 2550 4680.254 226.611 Output Total 670 1255 180 Balance 1880 3425.254 46.611 Weight 52.5 kg 52.3 kg Intake: IV 450 3500 0.9% NS 3500 Intake, IV Titration 2100 1180.254 226.611 Amount Ampicillin-Sulbactam 3 gm 200 In Sodium Chloride 0.9% 100 ml @ 100 mls/hr IVPB Q8HR [facility] Rx#:[id number] Magnesium Sulfate-D5w Pmx 100 1 gm In Dextrose/Water 1 100ml.bag @ 100 mls/hr IVPB Q1H [facility] Rx#: [id number] Mvi, Adult No.4 with Vit 800 K 10 ml Thiamine 100 mg Folic Acid 1 mg In Sodium Chloride 0.9% 1,000 ml @ 150 mls/hr IV .BY DURATION [facility] Rx#: [id number] Phenytoin Sodium Inj 100 200 mg In Sodium Chloride 0.9 % 100 ml @ 200 mls/hr IVPB Q8HR [facility] Rx#: [id number] Potassium Chloride 10 meq 100 Lidocaine 2% Inj 10 mg In Sodium Chloride 0.9% 100 ml @ 100 mls/hr IV Q1HR [facility] Rx#:[id number] Potassium Chloride 20 meq 200 Lidocaine 2% Inj 20 mg In Sodium Chloride 0.9% 100 ml @ 55.5 mls/hr IVPB Q2HR [facility] Rx#:[id number] Propofol 500 mg In Empty 80.254 26.611 Bag 1 bag @ Titrate IV . Q0M [facility] Rx#:[id number] Sodium Chloride 0.9% 1, 100 100 000 ml @ 150 mls/hr IV . BY DURATION [facility] Rx#: [id number] Sodium Chloride 0.9% 1, 1000 000 ml @ 150 mls/hr IV . BY DURATION [facility] Rx#: [id number] Sodium Chloride 0.9% 500 500 ml @ 999 mls/hr IV .Q31M ONE Rx#:[id number] metroNIDAZOLE-NS PMX 500 100 mg In Saline 1 100ml.bag @ 100 mls/hr IVPB Q8HR [facility] Rx#:[id number] Output: Gastric Drainage 275 Drainage 140 485 150 Bilateral Lower Abdomen 140 Left Abdomen 230 50 Right Abdomen 255 100 Urine 410 495 30 Estimated Blood Loss 120 Other: Voiding Method Indwelling Catheter Indwelling Catheter - Constitutional Constitutional Comment(s): Currently intubated and sedated - Respiratory Respiratory: bilateral: diminished, rhonchi - Cardiovascular Rhythm: other - Gastrointestinal Gastrointestinal Comment(s): Dressing is intact clean and dry. JPs are serosanguineous. General gastrointestinal: Present: soft - Labs CBC & Chem 7: 01/11/17 07:15 01/11/17 05:18 Labs: Abnormal Lab Results - Last 24 Hours (Table) 01/10/17 01/10/17 01/10/17 Range/Units 10:33 14:43 16:56 RBC (3.80-5.40) m/uL Hgb (11.4-16.0) gm/dL MCV (80.0-100.0) fL MCHC (31.0-37.0) g/dL RDW (11.5-15.5) % Plt Count (150-450) k/uL Lymphocytes # (Manual) (1.0-4.8) k/uL ABG pH 7.28 L (7.35-7.45) ABG pCO2 (35-45) mmHg ABG pO2 74 L (83-108) mmHg ABG HCO3 19 L (21-25) mmol/L ABG Total CO2 (19-24) mmol/L ABG O2 Saturation 92.8 L (94-97) % Potassium (3.5-5.1) mmol/L Chloride (98-107) mmol/L Carbon Dioxide (22-30) mmol/L BUN (7-17) mg/dL Creatinine (0.52-1.04) mg/dL Plasma Lactic Acid Kevin 3.0 H* 2.1 H (0.7-2.0) mmol/L Calcium (8.4-10.2) mg/dL Magnesium (1.6-2.3) mg/dL Total Bilirubin (0.2-1.3) mg/dL AST (14-36) U/L Alkaline Phosphatase (38-126) U/L Total Protein (6.3-8.2) g/dL Albumin (3.5-5.0) g/dL 01/10/17 01/10/17 01/10/17 Range/Units 19:17 20:25 23:08 RBC (3.80-5.40) m/uL Hgb (11.4-16.0) gm/dL MCV (80.0-100.0) fL MCHC (31.0-37.0) g/dL RDW (11.5-15.5) % Plt Count (150-450) k/uL Lymphocytes # (Manual) (1.0-4.8) k/uL ABG pH 7.22 L (7.35-7.45) ABG pCO2 47 H (35-45) mmHg ABG pO2 142 H (83-108) mmHg ABG HCO3 19 L (21-25) mmol/L ABG Total CO2 (19-24) mmol/L ABG O2 Saturation 99.0 H (94-97) % Potassium (3.5-5.1) mmol/L Chloride (98-107) mmol/L Carbon Dioxide (22-30) mmol/L BUN (7-17) mg/dL Creatinine (0.52-1.04) mg/dL Plasma Lactic Acid Kevin 2.9 H* 2.8 H* (0.7-2.0) mmol/L Calcium (8.4-10.2) mg/dL Magnesium (1.6-2.3) mg/dL Total Bilirubin (0.2-1.3) mg/dL AST (14-36) U/L Alkaline Phosphatase (38-126) U/L Total Protein (6.3-8.2) g/dL Albumin (3.5-5.0) g/dL 01/11/17 01/11/17 01/11/17 Range/Units 05:18 05:18 05:20 RBC (3.80-5.40) m/uL Hgb (11.4-16.0) gm/dL MCV (80.0-100.0) fL MCHC (31.0-37.0) g/dL RDW (11.5-15.5) % Plt Count (150-450) k/uL Lymphocytes # (Manual) (1.0-4.8) k/uL ABG pH 7.32 L (7.35-7.45) ABG pCO2 32 L (35-45) mmHg ABG pO2 73 L (83-108) mmHg ABG HCO3 16 L (21-25) mmol/L ABG Total CO2 17 L (19-24) mmol/L ABG O2 Saturation 93.0 L (94-97) % Potassium 3.2 L (3.5-5.1) mmol/L Chloride 117 H (98-107) mmol/L Carbon Dioxide 17 L (22-30) mmol/L BUN 3 L (7-17) mg/dL Creatinine 0.50 L (0.52-1.04) mg/dL Plasma Lactic Acid Kevin 2.2 H* (0.7-2.0) mmol/L Calcium 6.2 L* (8.4-10.2) mg/dL Magnesium 1.0 L* (1.6-2.3) mg/dL Total Bilirubin 1.4 H (0.2-1.3) mg/dL AST 73 H (14-36) U/L Alkaline Phosphatase 151 H (38-126) U/L Total Protein 5.0 L (6.3-8.2) g/dL Albumin 2.1 L (3.5-5.0) g/dL 01/11/17 Range/Units 07:15 RBC 3.07 L (3.80-5.40) m/uL Hgb 10.4 L (11.4-16.0) gm/dL MCV 111.9 H D (80.0-100.0) fL MCHC 30.2 L (31.0-37.0) g/dL RDW 17.3 H (11.5-15.5) % Plt Count 92 L D (150-450) k/uL Lymphocytes # (Manual) 0.6 L (1.0-4.8) k/uL ABG pH (7.35-7.45) ABG pCO2 (35-45) mmHg ABG pO2 (83-108) mmHg ABG HCO3 (21-25) mmol/L ABG Total CO2 (19-24) mmol/L ABG O2 Saturation (94-97) % Potassium (3.5-5.1) mmol/L Chloride (98-107) mmol/L Carbon Dioxide (22-30) mmol/L BUN (7-17) mg/dL Creatinine (0.52-1.04) mg/dL Plasma Lactic Acid Kevin (0.7-2.0) mmol/L Calcium (8.4-10.2) mg/dL Magnesium (1.6-2.3) mg/dL Total Bilirubin (0.2-1.3) mg/dL AST (14-36) U/L Alkaline Phosphatase (38-126) U/L Total Protein (6.3-8.2) g/dL Albumin (3.5-5.0) g/dL Microbiology - Last 24 Hours (Table) 01/10/17 19:30 Urine Culture - Preliminary Urine,Catheterized Assessment and Plan (1) Perforated viscus Status: Acute (2) COPD (chronic obstructive pulmonary disease) Status: Acute (3) Nicotine dependence Status: Acute (4) Lactic acidosis Status: Acute (5) Alcoholic cirrhosis Status: Acute Plan: Continue supportive care. She is on IV antibiotics along with DVT and ulcer prophylaxis. A central line is being inserted we'll start TPN on her. Overall condition is guarded
[2017-01-11] MEDS ORDERED: NOREPINEPHRINE 4 MG-0.9% NS PMX 250 ML IV ONE (10:10)
[2017-01-11] MEDS ORDERED: SODIUM CHLORIDE 0.9% 500 ML IV ONE (10:13)
[2017-01-11] MEDS ORDERED: NOREPINEPHRINE 4 MG in SODIUM CHLORIDE 0.9% 250 ML IV SCH (10:15)
[2017-01-11] MEDS ORDERED: HYDROCORTISONE SUCCINATE 100 MG/2 ML VIAL IV STA (10:17)
[2017-01-11] MEDS: PIPERACILLIN-TAZOBACTAM 3.375 GM in DEXTROSE/WATER 1 50ML.BAG IVPB SCH ×2 (11:46→17:40)
--- NOTE | 2017-01-11 11:50 | XR ---
EXAMINATION TYPE: XR chest 1V confirm line [facility] DATE OF EXAM: 01/11/2017 11:45 AM COMPARISON: 01/11/2017 INDICATION: Line placement TECHNIQUE: Single frontal view of the chest is obtained. FINDINGS: The heart size is normal. The pulmonary vasculature is normal. There is a mild right middle lobe infiltrate. Endotracheal tube is present with the tip above the jena. Nasogastric tube transverses the thorax. EKG leads overlie the chest. There is placement right central venous catheter with the tip in the distal superior vena cava region . No pneumothorax is identified. Artifact does overlie the lung apices. IMPRESSION: 1. No pneumothorax post right central venous catheter placement. Tip is in the distal superior vena c randy region. 2. Additional lines and catheters discussed above. 3. Right middle lobe infiltrate
[2017-01-11 12:11] LABS: Glucose,Whole Blood 96 mg/dL (75-99)
[2017-01-11] MEDS: NOREPINEPHRINE 16 MG in SODIUM CHLORIDE 0.9% 250 ML IV SCH ×2 (12:30→17:30)
[2017-01-11 12:41] VITALS: BP 77/47; TEMP 99.6
[2017-01-11] MEDS ORDERED: SODIUM CHLORIDE 0.9% 99 ML with VASOPRESSIN 20 UNIT IV SCH ×2 (13:30)
[2017-01-11] MEDS ORDERED: SODIUM CHLORIDE 0.9% 1,000 ML IV SCH (13:30)
[2017-01-11 13:56] LABS: ALT 31 U/L (9-52); AST 74 U/L (14-36); Alkaline Phosphatase 180 U/L (38-126); Anion Gap 7 mmol/L; Blood Urea Nitrogen 4 mg/dL (7-17); Calcium 6.6 mg/dL (8.4-10.2); Carbon Dioxide 15 mmol/L (22-30); Glucose 89 mg/dL (74-99); Non-African American GFR(MDRD) >60 (>60 ml/min/1.73 sqM); Potassium 3.1 mmol/L (3.5-5.1); Sodium 143 mmol/L (137-145); Total Bilirubin 1.4 mg/dL (0.2-1.3); Total Protein 4.7 g/dL (6.3-8.2)
[2017-01-11 14:01] LABS: Chloride 121 mmol/L (98-107)
--- NOTE | 2017-01-11 14:05 | PN ---
Critical care time spent: 45 minutes. Ms. Keiko Delgado is a 46-year-old female who came into hospital with abdominal pain and discomfort, found to have perforated gastric ulcer, which was repaired. Patient, however, developed progressive respiratory failure, desaturating, increasing shortness of breath requiring 100% oxygen and given that patient has some evidence of pneumonia and with worsening respiratory status was intubated. The patient remains hypertensive, volume depleted, dehydrated, in spite of aggressive fluid resuscitation. Vasopressors are being initiated now in the form of Levophed. Patient has very poor peripheral IV access, central line and A-line will be placed as well. The patient is sedated with propofol drip. Currently patient is 60 mcg with marginal oxygenation though. X-ray revealed right lower lobe pneumonia and prominent interstitium. The ET tube and OG tube are stable. Laboratory data reviewed as well. Current vent settings include assist control rate of 16, tidal volume. The patient breathing in mid 20s. Heart rate is ( ) other vent setting includes PEEP 5, 400 tidal volume and 90% oxygen. Other vitals include blood pressure is 80/60, respiratory rate 20, pulse 140, temperature is 101.3, saturation 94%. HEENT EXAMINATION: Otherwise unremarkable. NECK: Supple. LUNGS: Bilateral coarse breath sound with bronchial breath sounds in the right base. HEART: regular rate and rhythm. S1 and S2 audible. ABDOMEN: Soft, is covered with dressing. EXTREMITIES: +1 peripheral pulses. NEUROLOGICAL EXAMINATION: Sedated with propofol drip. The chest x-ray performed earlier today reviewed and compared with the prior x-ray revealed right basilar hazy opacity with small pleural effusion along with infiltrate and consolidation. Other laboratory data reviewed include white cell count 5600, hemoglobin 10, hematocrit 34, platelet count of 92,000. Arterial blood gas initial was 7.22, pCO2 of 47, pO2 of 142. FiO2 is down to 90% with pH of 7.32, pCO2 32, pO2 of 73 only. Sodium is 143, potassium 3.2. BUN and creatinine 3 and 0.5. Lactic acid level remains elevated at 2.2; however, slowly declining for 2.9, phosphorus is one. Magnesium is 1.4. Potassium is 3.2, all 3 are being replaced. Dilantin level is 8.1. IMPRESSION: 1. Acute hypoxic respiratory failure, likely mixed bacterial and gram-negative pneumonia. The patient is being switched to IV Zosyn from Unasyn. We will obtain Aaron culture, including urine, blood and sputum has well. 2. Status post gastric perforation, likely gastric ulcer perforation, status post repair with intra-abdominal sepsis occult cannot be excluded. Continue supportive care. Continue antibiotics and follow clinical course closely. The patient is not a candidate for tube feeds and TPN is being started. 3. Hypotension, hypovolemia related to above likely severe sepsis. 4. Electrolyte imbalance with hypokalemia, hypomagnesemia and hypophosphatemia being repleted as well. 5. Severe chronic obstructive pulmonary disease. Continue breathing treatments. 6. Endobronchial mucous plugging infiltrate and bronchiectasis seen on the right side on CAT scan. The patient will likely need a bronchoscopy and pulmonary toilet once clinically more stable. PLAN AND RECOMMENDATION: 1. Fluid resuscitation and pressors and monitoring of hemodynamic status closely. 2. Continue DVT prophylaxis with pneumatic compression device. 3. Pain control with Dilaudid along with Ativan and propofol is being continued. PLAN AND RECOMMENDATIONS: As above. Will proceed with line placement as dictated above. Critical care time 45 minutes.
[2017-01-11] MEDS ORDERED: [UNRECOGNIZED DRUG - REMARK] IV ONE ×5 (15:00)
[2017-01-11] MEDS ORDERED: POTASSIUM PHOSPHATE 10 MMOL in SODIUM CHLORIDE 0.9% 100 ML IV ONE (15:00)
[2017-01-11] MEDS ORDERED: SODIUM BICARB 8.4% 50 ML SYR (1 MEQ/ML) IV STA (15:48)
[2017-01-11] MEDS ORDERED: DEXTROSE 5% IN WATER 1,000 ML with SODIUM BICARB (1 MEQ/ML) 150 ML IV SCH (16:00)
[2017-01-11] MEDS ORDERED: HYDROCORTISONE SUCCINATE 100 MG/2 ML VIAL IV SCH ×2 (16:00→19:58)
[2017-01-11] MEDS ORDERED: POTASSIUM CHLORIDE 20 MEQ in WATER FOR INJECTION 1 100ML.BAG IVPB ONE (17:00)
[2017-01-11 19:38] LABS: Potassium 4.8 mmol/L (3.5-5.1)
--- NOTE | 2017-01-11 20:04 | ED ---
CPR HPI - General Chief Complaint: Chest Pain Stated Complaint: chest pain Time Seen by Provider: 01/10/17 00:26 Source: EMS, RN notes reviewed, old records reviewed Mode of arrival: EMS Limitations: altered mental status - History of Present Illness Initial Comments: 46-year-old female in the ICU following surgery for perforated ulcer has been declining throughout the day is on full strength of vasopressors developed a cardiac arrest when I arrived CPR was in progress. Patient was unresponsive, breath sounds were equal. Patient already intubated and had been on a ventilator. Patient had a rhythm but no pulse. Patient was given by the staff 1 mg of epinephrine and this was repeated 2 while CPR was maintained. A pulse was obtained by Doppler she was also given bicarb since she been a bicarbonate drip and her blood pressure kathy to 100 systolic with heart rate of 120 patient remains very unstable the nursing staff called the attending Dr. Mcgrath a blood gas CBC and BMP was ordered prognosis is poor. The CPR record was reviewed and signed - Related Data Home Medications Medication Instructions Recorded Confirmed Loratadine [Claritin] 10 mg PO DAILY 06/08/15 01/10/17 Ranitidine HCl 150 mg PO BID 06/08/15 01/10/17 ALPRAZolam 1 mg PO BID 12/18/15 01/10/17 Albuterol Inhaler [Ventolin Hfa 2 puff INHALATION RT-TID PRN 12/18/15 01/10/17 Inhaler] carBAMazepine [TEGretol XR] 100 mg PO DAILY 12/18/15 01/10/17 HYDROcodone/APAP 5-325MG [[place] 1 tab PO TID PRN 11/17/16 01/10/17 5-325] Ipratropium [place] [Atrovent Hfa] 2 puff INHALATION RT-QID PRN 01/10/17 carBAMazepine [TEGretol XR] 200 mg PO HS 01/10/17 01/10/17 Previous Rx's Medication Instructions Recorded ALPRAZolam [Xanax] 0.5 mg PO BID #20 tab 01/03/16 Allergies Allergy/AdvReac Type Severity Reaction Status Date / Time codeine Allergy Unknown Verified 01/10/17 12:19 Review of Systems ROS Statement: Those systems with pertinent positive or pertinent negative responses have been documented in the HPI. ROS Other: All systems not noted in ROS Statement are negative. Past Medical History Past Medical History: Asthma, COPD, Hypertension, Osteoarthritis (OA), Seizure Disorder Additional Past Medical History / Comment(s): back pain History of Any Multi-Drug Resistant Organisms: None Reported Past Surgical History: Section, Cholecystectomy Additional Past Surgical History / Comment(s): Excision of infected cyst from the right breast Past Anesthesia/Blood Transfusion Reactions: No Reported Reaction Past Psychological History: Depression Additional Psychological History / Comment(s): patient has tried multiple different antidepressants and states "none of them have worked for me" Smoking Status: Current every day smoker Past Alcohol Use History: Heavy Past Drug Use History: Marijuana - Past Family History Mother Family Medical History: Cancer Father Family Medical History: Cancer General Exam Limitations: no limitations General appearance: alert, anxious, in distress, cachectic Course Vital Signs 01/10/17 01/10/17 01/10/17 00:27 00:45 00:50 Temperature 97.2 F L Pulse Rate 101 H 86 80 Respiratory 22 20 Rate Blood Pressure 108/82 120/67 O2 Sat by Pulse 89 L Oximetry 01/10/17 01/10/17 01/10/17 01:10 01:49 02:53 Temperature Pulse Rate 88 98 115 H Respiratory 18 20 Rate Blood Pressure 119/80 114/77 O2 Sat by Pulse 92 L 94 L Oximetry Medical Decision Making - Lab Data Result diagrams: 01/11/17 07:15 01/11/17 19:10 Lab Results 01/10/17 01/10/17 01/10/17 Range/Units 00:40 00:40 00:40 WBC 13.5 H (3.8-10.6) k/uL RBC 3.89 (3.80-5.40) m/uL Hgb 12.9 (11.4-16.0) gm/dL Hct 41.1 (34.0-46.0) % MCV 105.8 H (80.0-100.0) fL MCH 33.2 (25.0-35.0) pg MCHC 31.4 (31.0-37.0) g/dL RDW 17.9 H (11.5-15.5) % Plt Count 196 (150-450) k/uL Neutrophils % 67 % Lymphocytes % 25 % Monocytes % 4 % Eosinophils % 1 % Basophils % 0 % Neutrophils # 9.1 H (1.3-7.7) k/uL Lymphocytes # 3.4 (1.0-4.8) k/uL Monocytes # 0.5 (0-1.0) k/uL Eosinophils # 0.2 (0-0.7) k/uL Basophils # 0.1 (0-0.2) k/uL Hypochromasia Moderate Anisocytosis Slight Macrocytosis Marked PT (9.0-12.0) sec INR (<1.1) APTT (22.0-30.0) sec D-Dimer (<0.60) mg/L FEU Sodium 141 (137-145) mmol/L Potassium 3.4 L (3.5-5.1) mmol/L Chloride 103 (98-107) mmol/L Carbon Dioxide 23 (22-30) mmol/L Anion Gap 15 mmol/L BUN 3 L (7-17) mg/dL Creatinine 0.40 L (0.52-1.04) mg/dL Est GFR (MDRD) Af Amer >60 (>60 ml/min/1.73 sqM) Est GFR (MDRD) Non-Af >60 (>60 ml/min/1.73 sqM) Glucose 111 H (74-99) mg/dL Plasma Lactic Acid Kevin (0.7-2.0) mmol/L Calcium 8.7 (8.4-10.2) mg/dL Magnesium 1.9 (1.6-2.3) mg/dL Total Bilirubin 1.3 (0.2-1.3) mg/dL AST 159 H (14-36) U/L ALT 40 (9-52) U/L Alkaline Phosphatase 312 H (38-126) U/L Total Creatine Kinase 34 (30-135) U/L CK-MB (CK-2) 0.6 (0.0-2.4) ng/mL CK-MB (CK-2) Rel Index 1.8 Troponin I <0.012 (0.000-0.034) ng/mL NT-Pro-B Natriuret Pep pg/mL Total Protein 7.7 (6.3-8.2) g/dL Albumin 3.9 (3.5-5.0) g/dL Lipase 51 (23-300) U/L HCG, Qual 01/10/17 01/10/17 01/10/17 Range/Units 00:40 00:40 00:40 WBC (3.8-10.6) k/uL RBC (3.80-5.40) m/uL Hgb (11.4-16.0) gm/dL Hct (34.0-46.0) % MCV (80.0-100.0) fL MCH (25.0-35.0) pg MCHC (31.0-37.0) g/dL RDW (11.5-15.5) % Plt Count (150-450) k/uL Neutrophils % % Lymphocytes % % Monocytes % % Eosinophils % % Basophils % % Neutrophils # (1.3-7.7) k/uL Lymphocytes # (1.0-4.8) k/uL Monocytes # (0-1.0) k/uL Eosinophils # (0-0.7) k/uL Basophils # (0-0.2) k/uL Hypochromasia Anisocytosis Macrocytosis PT 10.8 (9.0-12.0) sec INR 1.1 (<1.1) APTT 25.2 (22.0-30.0) sec D-Dimer 1.26 H (<0.60) mg/L FEU Sodium (137-145) mmol/L Potassium (3.5-5.1) mmol/L Chloride (98-107) mmol/L Carbon Dioxide (22-30) mmol/L Anion Gap mmol/L BUN (7-17) mg/dL Creatinine (0.52-1.04) mg/dL Est GFR (MDRD) Af Amer (>60 ml/min/1.73 sqM) Est GFR (MDRD) Non-Af (>60 ml/min/1.73 sqM) Glucose (74-99) mg/dL Plasma Lactic Acid Kevin (0.7-2.0) mmol/L Calcium (8.4-10.2) mg/dL Magnesium (1.6-2.3) mg/dL Total Bilirubin (0.2-1.3) mg/dL AST (14-36) U/L ALT (9-52) U/L Alkaline Phosphatase (38-126) U/L Total Creatine Kinase (30-135) U/L CK-MB (CK-2) (0.0-2.4) ng/mL CK-MB (CK-2) Rel Index Troponin I (0.000-0.034) ng/mL NT-Pro-B Natriuret Pep 53 pg/mL Total Protein (6.3-8.2) g/dL Albumin (3.5-5.0) g/dL Lipase (23-300) U/L HCG, Qual Not Detected 01/10/17 Range/Units 02:45 WBC (3.8-10.6) k/uL RBC (3.80-5.40) m/uL Hgb (11.4-16.0) gm/dL Hct (34.0-46.0) % MCV (80.0-100.0) fL MCH (25.0-35.0) pg MCHC (31.0-37.0) g/dL RDW (11.5-15.5) % Plt Count (150-450) k/uL Neutrophils % % Lymphocytes % % Monocytes % % Eosinophils % % Basophils % % Neutrophils # (1.3-7.7) k/uL Lymphocytes # (1.0-4.8) k/uL Monocytes # (0-1.0) k/uL Eosinophils # (0-0.7) k/uL Basophils # (0-0.2) k/uL Hypochromasia Anisocytosis Macrocytosis PT (9.0-12.0) sec INR (<1.1) APTT (22.0-30.0) sec D-Dimer (<0.60) mg/L FEU Sodium (137-145) mmol/L Potassium (3.5-5.1) mmol/L Chloride (98-107) mmol/L Carbon Dioxide (22-30) mmol/L Anion Gap mmol/L BUN (7-17) mg/dL Creatinine (0.52-1.04) mg/dL Est GFR (MDRD) Af Amer (>60 ml/min/1.73 sqM) Est GFR (MDRD) Non-Af (>60 ml/min/1.73 sqM) Glucose (74-99) mg/dL Plasma Lactic Acid Kevin 2.5 H* (0.7-2.0) mmol/L Calcium (8.4-10.2) mg/dL Magnesium (1.6-2.3) mg/dL Total Bilirubin (0.2-1.3) mg/dL AST (14-36) U/L ALT (9-52) U/L Alkaline Phosphatase (38-126) U/L Total Creatine Kinase (30-135) U/L CK-MB (CK-2) (0.0-2.4) ng/mL CK-MB (CK-2) Rel Index Troponin I (0.000-0.034) ng/mL NT-Pro-B Natriuret Pep pg/mL Total Protein (6.3-8.2) g/dL Albumin (3.5-5.0) g/dL Lipase (23-300) U/L HCG, Qual Disposition Clinical Impression: Chronic back pain, Peritonitis, Gastric ulcer with perforation Disposition: ADMITTED IP TO THIS HOSP Condition: Serious
[2017-01-11 20:07] LABS: ABG PCO2 75 mmHg (35-45); ABG PH 7.01 (7.35-7.45)
[2017-01-11 20:08] LABS: ABG Base Excess -11.4 mmol/L; ABG HCO3 18 mmol/L (21-25); ABG PO2 73 mmHg (83-108); ABG TCO2 20 mmol/L (19-24)
[2017-01-11 20:45] VITALS: PULSE 0; RESP 0
[2017-01-11] MEDS ORDERED: CALCIUM GLUCONATE 1,000 MG in SODIUM CHLORIDE 0.9% 100 ML IVPB SCH (21:00)
--- NOTE | 2017-01-12 11:57 | PCN ---
DATE OF PROCEDURE: PROCEDURE PERFORMED: Arterial line placement. INDICATIONS: 1. Aspiration pneumonia. 2. Severe hypotension. 3. Sepsis and septic shock. 4. Perforated gastric ulcer. OPERATIVE DETAIL: Patient was prepared and draped in the usual fashion. Using a modified Seldinger technique single-lumen catheter inserted into the right radial artery without any difficulty. Secured #3 ( ). Good waveforms obtained. Patient tolerated the procedure well. No complication noted.
--- NOTE | 2017-01-12 12:50 | PCN ---
DATE OF PROCEDURE: 01/11/2017 PROCEDURE: Central line placement. INDICATIONS: Severe sepsis, septic shock, gastric perforation, aspiration pneumonia. DESCRIPTION OF PROCEDURE: The patient was prepared and draped in the usual fashion. Using a modified Seldinger technique, triple-lumen catheter inserted into the right internal jugular vein via middle approach. Patient tolerated the procedure well. No complication noted. Chest x-ray is pending.
--- NOTE | 2017-01-12 14:52 | PN ---
This 46-year-old woman who was admitted after peptic ulcer perforation and surgery. The patient had to be reintubated yesterday because of multiple medical issues and recurrent acute respiratory failure. The patient also has COPD. The patient is possibly going through acute DTs also. The patient is severely hypotensive on dose of Levophed and as well as vasopressors also. The patient is being closely monitored. Patient is mechanically sedated. The patient is on multiple drips currently including Levophed 65, vasopressor 0.04, TPN 30 and IV fluids and bicarb drip also. The patient is on mechanical ventilation with tidal of 400 and FIO2 of 55 and 100% . The patient is closely monitored. Past medical history and review of systems could not be taken, patient mechanically sedated. Current medications are reviewed and include: 1. Tylenol p.r.n. 2. Albuterol q.i.d. and p.r.n. 3. Pulmicort b.i.d. 4. Peridex. 5. Catapres 0.2 patch. 6. Solu-Cortef 50 IV q.8. 7. Dilaudid. 8. Ativan p.r.n. 9. Flagyl. 10. Morphine. 11. Narcan. 12. Norepinephrine. PHYSICAL EXAMINATION: Patient is mechanically ventilated, pulse 120, blood pressure 81/50, respiratory rate 20, temperature is normal, pulse ox 100% on mechanical ventilation. HEENT: Conjunctivae normal.. NECK: No jugular venous distention. CARDIOVASCULAR: S1 and S2 muffled. RESPIRATORY: Breath sounds diminished at the bases. A few scattered rhonchi. No crackles. ABDOMEN: Soft, status post surgery. LEGS: No edema. No swelling. NERVOUS SYSTEM: Unresponsive, mechanically sedated. LABS: WBC 5.6, hemoglobin 10.4, MCV 119.9. Sodium 140, potassium 2.1, chloride 121. Creatinine 0.50. Lactic acid 2.2. Calcium 6.6. Magnesium 1.4. Albumin 2.2. ASSESSMENT: 1. Acute peptic ulcer perforation with sepsis, present on admission, status post exploratory laparotomy as well as oversew of the gastric ulcer with a Abram patch and liver biopsy. 2. Acute hypoxic respiratory failure on mechanical ventilation, multifactorial. 3. Chronic obstructive pulmonary disease, acute exacerbation. 4. Acute delirium tremens. 5. Acute respiratory acidosis. 6. Severe hypotension, possibly multifactorial. 7. Increased WBC. 8. Increased MCV. 9. History of EtOH. 10. Hypertension. 11. Possible withdrawals. 12. Elevated lactic acid. 13. Increased AST, possible alcoholic hepatitis. 14. Increased alkaline phosphatase. 15. History of hypertension. 16. History of degenerative joint disease. 17. History of seizure disorder. 18. History of back pain, degenerative joint disease. 19. History of cholecystectomy. 20. Depression, not otherwise specified. 21. History of nicotine dependence. 22. History of THC. 23. Hypocalcemia. 24. Hypomagnesemia. 25. Hypokalemia. 26. FULL CODE. RECOMMENDATIONS AND DISCUSSION: Recommend current medication, continue to monitor, continue symptomatic treatment. Otherwise, at this time I recommend repeat magnesium, supplement lytes, supplement magnesium and also calcium. Otherwise, continue to monitor. Guarded prognosis. Mechanical ventilation, antibiotics, pressor support. Further recommendations to follow. MTDD
[2017-01-12] MEDS ORDERED: FAT EMULSION 20% 250 ML in EMPTY BAG 1 BAG IV SCH (18:00)
--- NOTE | 2017-01-20 20:00 | P.DS ---
Providers Date of admission: 01/10/17 03:46 Expected date of discharge: 01/11/17 Attending physician: Mari Kaplan Primary care physician: Stated None - Discharge Diagnosis(es) (1) Perforated viscus Status: Acute (2) COPD (chronic obstructive pulmonary disease) Status: Acute (3) Nicotine dependence Status: Acute (4) Lactic acidosis Status: Acute (5) Alcoholic cirrhosis Status: Acute (6) Sepsis Status: Acute (7) SIRS due to infectious process with acute organ dysfunction Status: Acute Hospital Course: The patient presented to the emergency department with acute abdominal pain. Workup showed evidence of free air consistent with a perforated viscus. She was taken to the OR where she underwent her one oversew of the ulcer along with washout. Postoperatively she was sent to the ICU. SHe was initially extubated however was having quite a bit of pain and respiratory issues so was reintubated. Appropriate consults were obtained. She developed worsening sepsis which was compounded by her underlying COPD and cirrhosis. She developed cardiopulmonary arrest. Discussion was held with family and decision was made to make her Comfort Care. She shortly thereafter. Pertinent Studies: CT, lab, x-rays Procedures: Oversew perforated ulcer Plan - Discharge Summary Discharge Disposition: - Preliminary Cause of Preliminary Cause of : Sepsis with SIRS due to perforated gastric ulcer
== END 2017-01-11 20:15 | disposition expired | DRG 853 ==
LOC: EC 00:25 → 6ICU 03:46
PROVIDERS: ADMIT Surgery; ATTEND Surgery
PROC: 0DQ60ZZ Repair Stomach, Open Approach (ICD-10-PCS; principal; 2017-01-10 05:00)
PROC: 0FB00ZX Excision of Liver, Open Approach, Diagnostic (ICD-10-PCS; principal; 2017-01-10 05:00)
PROC: 02HV33Z Insertion of Infusion Device into Superior Vena Cava, Percutaneous Approach (ICD-10-PCS; 2017-01-11)
PROC: 4A133B1 Monitoring of Arterial Pressure, Peripheral, Percutaneous Approach (ICD-10-PCS; 2017-01-11)
PROC: 03HY32Z Insertion of Monitoring Device into Upper Artery, Percutaneous Approach (ICD-10-PCS; 2017-01-11)
PROC: 4A133J1 Monitoring of Arterial Pulse, Peripheral, Percutaneous Approach (ICD-10-PCS; 2017-01-11)
PROC: 5A1935Z Respiratory Ventilation, Less than 24 Consecutive Hours (ICD-10-PCS; 2017-01-11)
PROC: 0BH18EZ Insertion of Endotracheal Airway into Trachea, Via Natural or Artificial Opening Endoscopic (ICD-10-PCS; 2017-01-11)
DX: A41.9 Sepsis, unspecified organism (principal); R65.21 Severe sepsis with septic shock; J96.01 Acute respiratory failure with hypoxia; J69.0 Pneumonitis due to inhalation of food and vomit; K25.2 Acute gastric ulcer with both hemorrhage and perforation; J15.6 Pneumonia due to other Gram-negative bacteria; J44.0 Chronic obstructive pulmonary disease with (acute) lower respiratory infection; E87.2 Acidosis; J45.901 Unspecified asthma with (acute) exacerbation; K65.9 Peritonitis, unspecified; K25.5 Chronic or unspecified gastric ulcer with perforation; F10.231 Alcohol dependence with withdrawal delirium; J44.1 Chronic obstructive pulmonary disease with (acute) exacerbation; J47.0 Bronchiectasis with acute lower respiratory infection; I11.9 Hypertensive heart disease without heart failure; E83.42 Hypomagnesemia; E83.51 Hypocalcemia; E86.0 Dehydration; E86.1 Hypovolemia; E87.6 Hypokalemia; F17.210 Nicotine dependence, cigarettes, uncomplicated; F32.9 Major depressive disorder, single episode, unspecified; G40.909 Epilepsy, unspecified, not intractable, without status epilepticus; G89.29 Other chronic pain; K21.9 Gastro-esophageal reflux disease without esophagitis; K44.9 Diaphragmatic hernia without obstruction or gangrene; K70.11 Alcoholic hepatitis with ascites; K70.31 Alcoholic cirrhosis of liver with ascites; T17.990A Other foreign object in respiratory tract, part unspecified in causing asphyxiation, initial encounter; Z88.5 Allergy status to narcotic agent; I46.9 Cardiac arrest, cause unspecified; Z51.5 Encounter for palliative care
CPT/HCPCS: 31500; 36415; 36600; 71010; 71020; 71275; 74176; 80051; 80053; 80185; 82330; 82533; 82550; 82553; 82805; 83605; 83690; 83735; 83880; 84100; 84484; 84703; 85025; 85379; 85610; 85730; 87040; 87070; 87077; 87086; 87186; 87205; 88307; 88313; 93005; 94002; 94003; 94640; 96361; 96365; 96375; 96376; 99291